=== PATIENT | female | born 1990 | race Two or more races ===

== ENCOUNTER 2024-12-20 18:46 | Emergency (ER) | payer OTHER ==
[~2024-12-20] VITALS: Ht 152.4 cm; Wt 81.6 kg
[2024-12-20] MEDS ORDERED: KETOROLAC TROMETHAMINE 60 MG VIAL IM STA (19:56)
[2024-12-20] MEDS ORDERED: 0.9 % SODIUM CHLORIDE 1,000 ML IV STA (19:56)
[2024-12-20] MEDS ORDERED: KETOROLAC TROMETHAMINE 60 MG VIAL IM ONE ×2 (20:00→20:07)
[2024-12-20 20:35] LABS: BASO % 0.3 % (0.1-1.2); EOS # 0.16 (0.04-0.54); EOS % 1.7 % (0.7-7.0); LYMPH # 3.26 (1.18-3.74); LYMPH % 33.6 % (19.3-53.1); MEAN PLATELET VOLUME 10.40 fl (9.4-12.4); MONO # 0.53 (0.24-0.82); MONO % 5.5 % (4.7-12.5); NEUT # 5.69 (1.56-6.13); NEUT % 58.7 % (34.0-71.1); RED CELL DISTRIBUTION WIDTH 12.7 % (11.6-14.4)
[2024-12-20 21:50] LABS: ALT/SGPT 20.0 U/L (12-78); AST/SGOT 17.0 U/L (15-37); BILIRUBIN TOTAL 0.19 mg/dL (0.3-1.2); BUN CREA RATIO 14.0 (7.0-25.0); CREATININE SERUM 0.71 mg/dL (0.55-1.02); GFR 93.14; GLOBULINA 4.1 G/DL (2.4-3.5); GLUCOSE FASTING 156.0 mg/dL (65-100); OSMOLALITY SERUM 283.0 MOSM/KG (275-295)
[2024-12-20 22:04] LABS: URINE APPEARANCE Cloudy; URINE BILIRRUBIN Small (NEGATIVE); URINE BLOOD Large; URINE COLOR Orange; URINE GLUCOSE Negative (NEGATIVE); URINE KETONE 15 (NEGATIVE); URINE LEUKOCYTE Small; URINE NITRATE Negative; URINE UROBILINOGEN 1.0 E.U./dl
[2024-12-20 22:05] LABS: URINE BACTERIA 2252.3 uL (0.0-1933); URINE EPITHELIAL CELLS 74.7 uL (0.0-38.8); URINE WBC 307.8 uL (0.0-23.2)
[2024-12-20 22:18] LABS: URINE CAST 0.30 uL (0.0-1.40); URINE PROTEIN 100 (NEGATIVE)
[2024-12-20 22:23] LABS: URINE MUCUS MODERATE; URINE RBC > 10558.9 uL (0.0-20.8)
[2024-12-20 22:24] LABS: TYPE CELLS SQUAMOUS
== END 2024-12-21 01:54 | disposition home or self-care (01) ==
LOC: ER 18:46
PROVIDERS: Physician Assistant Medical
DX: N39.0 Urinary tract infection, site not specified (principal); K63.89 Other specified diseases of intestine